=== PATIENT | male | born 1945 | race Caucasian/White ===

== ENCOUNTER 2017-07-21 12:24 | Inpatient (IN) | payer OTHER, MEDICAID, MEDICARE ==
[2017-07-21] MEDS: IPRATRPIUM/ALBUTEROL 0.5/2.5MG 3 ML NEBU. NEB ×3 (13:20→19:36)
[2017-07-21] MEDS: methylPREDNISolone SOD SUCC PF 125 MG/2 ML VIAL. IV (13:27)
[2017-07-21 13:31] LABS: BASO % 0 % (0-3); EOS # 0.3 x10^3/uL (0.0-0.7); EOS % 2 % (0-3); HEMATOCRIT 44.6 % (39.0-53.0); HEMOGLOBIN 14.4 g/dL (13.0-17.5); LYMPH # 0.9 x10^3/uL (1.0-4.8); LYMPH % 6 % (24-48); MEAN CORPUSCULAR HEMOGLOBIN 31 pg (25-35); MEAN CORPUSCULAR HGB CONC 32 g/dL (31-37); MEAN CORPUSCULAR VOLUME 94 fL (79-100); MONO # 1.5 x10^3/uL (0.0-1.1); MONO % 9 % (0-9); NEUT # 14.5 x10^3uL (1.8-7.7); NEUT % 84 % (31-73); PLATELET COUNT 198 x10^3/uL (140-400); RED BLOOD COUNT 4.73 x10^6/uL (4.30-5.70); RED CELL DISTRIBUTION WIDTH 15.8 % (11.5-14.5); WHITE BLOOD COUNT 17.2 x10^3/uL (4.0-11.0)
[2017-07-21 13:36] LABS: ADD MAN DIFF? YES
[2017-07-21 13:39] LABS: ANION GAP 10 (6-14); BLOOD UREA NITROGEN 21 mg/dL (8-26); BUN/CREATININE RATIO 16 (6-20); CARBON DIOXIDE 25 mmol/L (21-32); CHLORIDE 103 mmol/L (98-107); CREATININE 1.3 mg/dL (0.7-1.3); GFR 54.1; GLUCOSE 114 mg/dL (70-99); POTASSIUM 5.3 mmol/L (3.5-5.1); SODIUM 138 mmol/L (136-145)
[2017-07-21 13:45] LABS: ALBUMIN 3.3 g/dL (3.4-5.0); ALBUMIN/GLOBULIN RATIO 0.7 (1.0-1.7); ALK PHOS 101 U/L (46-116); ALT (SGPT) 47 U/L (16-63); AST (SGOT) 43 U/L (15-37); TOTAL BILIRUBIN 0.9 mg/dL (0.2-1.0); TOTAL PROTEIN 8.2 g/dL (6.4-8.2)
[2017-07-21 13:48] LABS: TROPONINI < 0.017 ng/mL (0.000-0.055)
[2017-07-21 13:53] LABS: CKMB INDEX 1.5 % (0-4); CKMB MASS 1.3 ng/mL (0.0-3.6); CREATINE KINASE 88 U/L (39-308)
[2017-07-21 14:08] LABS: % BANDS 16 % (0-9); % EOS 1 % (0-5); % LYMPHS 7 % (24-48); % MONOS 4 % (0-10); % SEGS 72 % (35-66); PLT ESTIMATE ADEQUATE (ADEQUATE)
[2017-07-21 14:11] LABS: INFLUENZA A PATIENT NEGATIVE (NEGATIVE); INFLUENZA B PATIENT NEGATIVE (NEGATIVE); OBC FLU VALID
[2017-07-21 14:23] LABS: BILIRUBIN,URINE NEGATIVE (NEG); CLARITY,URINE CLEAR; COLOR,URINE YELLOW; GLUCOSE,URINE NEGATIVE (NEG); NITRITE,URINE NEGATIVE (NEG); PH,URINE 6.5; PROTEIN,URINE NEGATIVE (NEG-TRACE)
[2017-07-21 14:31] LABS: BACTERIA,URINE FEW /HPF (0-FEW); RBC,URINE 0 /HPF (0-2); SQUAMOUS EPITHELIAL CELL,UR FEW /LPF; WBC,URINE OCC /HPF (0-4)
[2017-07-21] MEDS ORDERED: ONDANSETRON PF 4 MG/2 ML VIAL. IV (14:45)
[2017-07-21] MEDS ORDERED: fentaNYL PF VIAL 100 MCG/2 ML VIAL IV (14:45)
[2017-07-21] MEDS ORDERED: levOFLOXacin PER PHARMACY. MC (14:45)
[2017-07-21] MEDS ORDERED: ACETAMINOPHEN 325 MG TABLET. PO (14:45)
[2017-07-21] MEDS ORDERED: methylPREDNISolone SOD SUCC PF 40 MG/ML VIAL. IV ×2 (15:00→18:00)
[2017-07-21] MEDS: IV NORMAL SALINE 1000ML BAG 1,000 ML IV (15:12)
[2017-07-21 17:39] LABS: LACTIC ACID 1.9 mmol/L (0.4-2.0)
[2017-07-21 20:29] LABS: INR 3.3 (0.8-1.1); PROTHROMBIN TIME PATIENT 31.3 SEC (11.7-14.0)
[2017-07-21] MEDS: FUROSEMIDE 40 MG/4 ML VIAL. IVP (21:25)
[2017-07-21] MEDS: methylPREDNISolone SOD SUCC PF 40 MG/ML VIAL. IV (21:26)
[2017-07-21] MEDS: DOCUSATE SODIUM 100 MG CAPSULE. PO (21:27)
[2017-07-21] MEDS: LACTOBACILLUS RHAMNOSUS GG 1 CAPSULE. PO (21:27)
[2017-07-21] MEDS: ATORVASTATIN CALCIUM 10 MG TABLET. PO (21:27)
[2017-07-21] MEDS: CARVEDILOL 12.5 MG TABLET. PO (21:27)
[2017-07-22 05:12] LABS: ADD MAN DIFF? NO
[2017-07-22 05:28] LABS: BASO % 0 % (0-3); EOS % 0 % (0-3); HEMATOCRIT 42.5 % (39.0-53.0); HEMOGLOBIN 13.9 g/dL (13.0-17.5); LYMPH # 1.1 x10^3/uL (1.0-4.8); LYMPH % 7 % (24-48); MEAN CORPUSCULAR HEMOGLOBIN 31 pg (25-35); MEAN CORPUSCULAR HGB CONC 33 g/dL (31-37); MEAN CORPUSCULAR VOLUME 96 fL (79-100); MONO # 0.2 x10^3/uL (0.0-1.1); MONO % 1 % (0-9); NEUT # 15.3 x10^3uL (1.8-7.7); NEUT % 92 % (31-73); PLATELET COUNT 186 x10^3/uL (140-400); RED BLOOD COUNT 4.44 x10^6/uL (4.30-5.70); WHITE BLOOD COUNT 16.6 x10^3/uL (4.0-11.0)
[2017-07-22 05:33] LABS: INR 2.8 (0.8-1.1); PROTHROMBIN TIME PATIENT 27.8 SEC (11.7-14.0)
[2017-07-22 05:39] LABS: ANION GAP 12 (6-14); BLOOD UREA NITROGEN 30 mg/dL (8-26); CALCIUM 8.7 mg/dL (8.5-10.1); CARBON DIOXIDE 23 mmol/L (21-32); CHLORIDE 102 mmol/L (98-107); CREATININE 1.5 mg/dL (0.7-1.3); GFR 45.9; GLUCOSE 151 mg/dL (70-99); POTASSIUM 4.9 mmol/L (3.5-5.1); SODIUM 137 mmol/L (136-145)
[2017-07-22] MEDS: methylPREDNISolone SOD SUCC PF 40 MG/ML VIAL. IV ×2 (05:56→20:26)
[2017-07-22] MEDS: IPRATRPIUM/ALBUTEROL 0.5/2.5MG 3 ML NEBU. NEB ×3 (07:06→14:57)
[2017-07-22] MEDS: cefTRIAXone IV Push 1 GM VIAL. IVP (08:00)
[2017-07-22] MEDS: LACTOBACILLUS RHAMNOSUS GG 1 CAPSULE. PO ×2 (09:00→20:26)
[2017-07-22] MEDS: DOCUSATE SODIUM 100 MG CAPSULE. PO ×2 (11:56→20:26)
[2017-07-22] MEDS: ASPIRIN CHEWABLE 81 MG TABLET. PO (11:57)
[2017-07-22] MEDS: OMEGA-3 FATTY ACIDS/FISH OIL 1,000 MG CAPSULE. PO (11:57)
[2017-07-22] MEDS: ALLOPURINOL 100 MG TABLET. PO (11:57)
[2017-07-22] MEDS: POTASSIUM CHLORIDE 10 MEQ TABLET.ER. PO (12:00)
[2017-07-22] MEDS: CARVEDILOL 12.5 MG TABLET. PO ×2 (12:00→18:54)
[2017-07-22] MEDS: FENOFIBRATE,MICRONIZED 134 MG CAPSULE PO (12:00)
[2017-07-22] MEDS: LISINOPRIL 40 MG TABLET. PO (12:02)
[2017-07-22] MEDS: DIGOXIN 125 MCG TABLET. PO (12:03)
[2017-07-22] MEDS: FUROSEMIDE 20 MG/2 ML VIAL. IVP ×2 (12:04→15:54)
[2017-07-22 12:38] LABS: CHOLESTEROL 122 mg/dL (0-200); HDLC 42 mg/dL (40-60); LDLC 72 mg/dL (0-100); NON-HDL CHOLESTEROL 80 mg/dL (0-129); TRIGLYCERIDES 38 mg/dL (0-150); VLDLC 8 mg/dL (0-40)
[2017-07-22 12:39] LABS: CHOLESTEROL/HDL RATIO 2.9
[2017-07-22 17:00] LABS: DIG 0.5 ng/mL (0.9-2.0)
[2017-07-22] MEDS: WARFARIN 5 MG TABLET. PO (18:53)
[2017-07-22] MEDS: ATORVASTATIN CALCIUM 10 MG TABLET. PO (20:26)
[2017-07-23 05:44] LABS: ADD MAN DIFF? NO
[2017-07-23 06:12] LABS: BASO % 0 % (0-3); EOS % 0 % (0-3); HEMATOCRIT 42.2 % (39.0-53.0); HEMOGLOBIN 13.4 g/dL (13.0-17.5); LYMPH % 5 % (24-48); MEAN CORPUSCULAR HEMOGLOBIN 30 pg (25-35); MEAN CORPUSCULAR HGB CONC 32 g/dL (31-37); MEAN CORPUSCULAR VOLUME 96 fL (79-100); MONO # 0.7 x10^3/uL (0.0-1.1); MONO % 3 % (0-9); NEUT % 92 % (31-73); PLATELET COUNT 206 x10^3/uL (140-400); RED BLOOD COUNT 4.42 x10^6/uL (4.30-5.70); RED CELL DISTRIBUTION WIDTH 15.4 % (11.5-14.5); WHITE BLOOD COUNT 21.7 x10^3/uL (4.0-11.0)
[2017-07-23 06:27] LABS: ANION GAP 10 (6-14); BLOOD UREA NITROGEN 39 mg/dL (8-26); CALCIUM 8.5 mg/dL (8.5-10.1); CARBON DIOXIDE 23 mmol/L (21-32); CHLORIDE 101 mmol/L (98-107); CREATININE 1.5 mg/dL (0.7-1.3); GFR 45.9; GLUCOSE 142 mg/dL (70-99); POTASSIUM 4.9 mmol/L (3.5-5.1); SODIUM 134 mmol/L (136-145)
[2017-07-23 06:28] LABS: INR 2.4 (0.8-1.1); PROTHROMBIN TIME PATIENT 24.9 SEC (11.7-14.0)
[2017-07-23] MEDS: ASPIRIN CHEWABLE 81 MG TABLET. PO (09:01)
[2017-07-23] MEDS: ALLOPURINOL 100 MG TABLET. PO (09:01)
[2017-07-23] MEDS: OMEGA-3 FATTY ACIDS/FISH OIL 1,000 MG CAPSULE. PO (09:02)
[2017-07-23] MEDS: DOCUSATE SODIUM 100 MG CAPSULE. PO ×2 (09:02→23:28)
[2017-07-23] MEDS: POTASSIUM CHLORIDE 10 MEQ TABLET.ER. PO (09:02)
[2017-07-23] MEDS: DIGOXIN 125 MCG TABLET. PO (09:02)
[2017-07-23] MEDS: FENOFIBRATE,MICRONIZED 134 MG CAPSULE PO (09:03)
[2017-07-23] MEDS: LACTOBACILLUS RHAMNOSUS GG 1 CAPSULE. PO ×2 (09:03→22:13)
[2017-07-23] MEDS: FUROSEMIDE 20 MG/2 ML VIAL. IVP ×3 (09:04→14:00)
[2017-07-23] MEDS: methylPREDNISolone SOD SUCC PF 40 MG/ML VIAL. IV (09:04)
[2017-07-23] MEDS: cefTRIAXone IV Push 1 GM VIAL. IVP (09:05)
[2017-07-23] MEDS: CARVEDILOL 12.5 MG TABLET. PO ×2 (13:02→18:20)
[2017-07-23] MEDS: LISINOPRIL 40 MG TABLET. PO (13:04)
[2017-07-23] MEDS: WARFARIN 5 MG TABLET. PO (18:21)
[2017-07-23] MEDS: ATORVASTATIN CALCIUM 10 MG TABLET. PO (23:27)
[2017-07-24 05:39] LABS: ADD MAN DIFF? NO
[2017-07-24 05:47] LABS: BASO % 0 % (0-3); EOS % 0 % (0-3); HEMATOCRIT 41.1 % (39.0-53.0); HEMOGLOBIN 13.6 g/dL (13.0-17.5); LYMPH # 1.5 x10^3/uL (1.0-4.8); LYMPH % 9 % (24-48); MEAN CORPUSCULAR HEMOGLOBIN 32 pg (25-35); MEAN CORPUSCULAR HGB CONC 33 g/dL (31-37); MEAN CORPUSCULAR VOLUME 95 fL (79-100); MONO # 1.1 x10^3/uL (0.0-1.1); MONO % 7 % (0-9); NEUT # 14.3 x10^3uL (1.8-7.7); NEUT % 84 % (31-73); PLATELET COUNT 217 x10^3/uL (140-400); RED BLOOD COUNT 4.32 x10^6/uL (4.30-5.70); RED CELL DISTRIBUTION WIDTH 15.9 % (11.5-14.5)
[2017-07-24 05:59] LABS: INR 2.9 (0.8-1.1); PROTHROMBIN TIME PATIENT 28.8 SEC (11.7-14.0)
[2017-07-24 06:37] LABS: THYROID STIM HORMONE (TSH) 0.902 uIU/mL (0.358-3.74)
[2017-07-24 06:40] LABS: ANION GAP 8 (6-14); BLOOD UREA NITROGEN 45 mg/dL (8-26); CALCIUM 8.6 mg/dL (8.5-10.1); CARBON DIOXIDE 28 mmol/L (21-32); CHLORIDE 103 mmol/L (98-107); CREATININE 1.3 mg/dL (0.7-1.3); GFR 54.1; GLUCOSE 115 mg/dL (70-99); POTASSIUM 4.5 mmol/L (3.5-5.1); SODIUM 139 mmol/L (136-145)
[2017-07-24] MEDS: cefTRIAXone IV Push 1 GM VIAL. IVP (09:11)
[2017-07-24] MEDS: FENOFIBRATE,MICRONIZED 134 MG CAPSULE PO (09:11)
[2017-07-24] MEDS: ASPIRIN CHEWABLE 81 MG TABLET. PO (09:12)
[2017-07-24] MEDS: DOCUSATE SODIUM 100 MG CAPSULE. PO ×2 (09:12→21:18)
[2017-07-24] MEDS: CARVEDILOL 12.5 MG TABLET. PO ×2 (09:12→18:23)
[2017-07-24] MEDS: LISINOPRIL 40 MG TABLET. PO (09:13)
[2017-07-24] MEDS: LACTOBACILLUS RHAMNOSUS GG 1 CAPSULE. PO ×2 (09:13→21:16)
[2017-07-24] MEDS: OMEGA-3 FATTY ACIDS/FISH OIL 1,000 MG CAPSULE. PO (09:14)
[2017-07-24] MEDS: predniSONE 20 MG TABLET PO (09:14)
[2017-07-24] MEDS: ALLOPURINOL 100 MG TABLET. PO (09:14)
[2017-07-24] MEDS: POTASSIUM CHLORIDE 10 MEQ TABLET.ER. PO (09:14)
[2017-07-24] MEDS: DIGOXIN 125 MCG TABLET. PO (09:16)
[2017-07-24] MEDS: FUROSEMIDE 20 MG/2 ML VIAL. IVP (09:17)
[2017-07-24] MEDS: CEFPODOXIME PROXETIL 100 MG TABLET. PO ×2 (12:17→21:18)
[2017-07-24] MEDS: FUROSEMIDE 80 MG TABLET. PO (12:17)
[2017-07-24] MEDS: WARFARIN 5 MG TABLET. PO (18:23)
[2017-07-24] MEDS: ATORVASTATIN CALCIUM 10 MG TABLET. PO (21:16)
[2017-07-25 05:25] LABS: ADD MAN DIFF? NO
[2017-07-25 05:37] LABS: BASO % 0 % (0-3); EOS # 0.1 x10^3/uL (0.0-0.7); EOS % 1 % (0-3); HEMATOCRIT 43.7 % (39.0-53.0); HEMOGLOBIN 14.6 g/dL (13.0-17.5); LYMPH # 1.8 x10^3/uL (1.0-4.8); LYMPH % 15 % (24-48); MEAN CORPUSCULAR HEMOGLOBIN 32 pg (25-35); MEAN CORPUSCULAR HGB CONC 33 g/dL (31-37); MEAN CORPUSCULAR VOLUME 95 fL (79-100); MONO # 1.2 x10^3/uL (0.0-1.1); MONO % 10 % (0-9); NEUT # 8.9 x10^3uL (1.8-7.7); NEUT % 74 % (31-73); PLATELET COUNT 215 x10^3/uL (140-400); RED CELL DISTRIBUTION WIDTH 15.6 % (11.5-14.5)
[2017-07-25 05:44] LABS: INR 3.5 (0.8-1.1)
[2017-07-25] MEDS: predniSONE 20 MG TABLET PO (09:22)
[2017-07-25] MEDS: CARVEDILOL 12.5 MG TABLET. PO (09:23)
[2017-07-25] MEDS: DOCUSATE SODIUM 100 MG CAPSULE. PO (09:23)
[2017-07-25] MEDS: DIGOXIN 125 MCG TABLET. PO (09:23)
[2017-07-25] MEDS: ASPIRIN CHEWABLE 81 MG TABLET. PO (09:23)
[2017-07-25] MEDS: CEFPODOXIME PROXETIL 100 MG TABLET. PO (09:23)
[2017-07-25] MEDS: FENOFIBRATE,MICRONIZED 134 MG CAPSULE PO (09:23)
[2017-07-25] MEDS: ALLOPURINOL 100 MG TABLET. PO (09:23)
[2017-07-25] MEDS: FUROSEMIDE 80 MG TABLET. PO (09:24)
[2017-07-25] MEDS: LACTOBACILLUS RHAMNOSUS GG 1 CAPSULE. PO (09:24)
[2017-07-25] MEDS: LISINOPRIL 40 MG TABLET. PO (09:24)
[2017-07-25] MEDS: POTASSIUM CHLORIDE 10 MEQ TABLET.ER. PO (09:24)
[2017-07-25] MEDS: OMEGA-3 FATTY ACIDS/FISH OIL 1,000 MG CAPSULE. PO (09:26)
== END 2017-07-25 13:00 | disposition home health service (06) | DRG 177 ==
LOC: ER 12:24 → ED HOLD 14:41 → 5 SOUTH 17:09
DX: J15.6 Pneumonia due to other Gram-negative bacteria (principal); J96.21 Acute and chronic respiratory failure with hypoxia; N17.9 Acute kidney failure, unspecified; I50.43 Acute on chronic combined systolic (congestive) and diastolic (congestive) heart failure; I42.9 Cardiomyopathy, unspecified; J44.1 Chronic obstructive pulmonary disease with (acute) exacerbation; J44.0 Chronic obstructive pulmonary disease with (acute) lower respiratory infection; I11.0 Hypertensive heart disease with heart failure; I27.20 Pulmonary hypertension, unspecified; I48.2 Chronic atrial fibrillation; M19.90 Unspecified osteoarthritis, unspecified site; E11.9 Type 2 diabetes mellitus without complications; E78.5 Hyperlipidemia, unspecified; G47.33 Obstructive sleep apnea (adult) (pediatric); I25.10 Atherosclerotic heart disease of native coronary artery without angina pectoris; Z79.01 Long term (current) use of anticoagulants; Z83.3 Family history of diabetes mellitus; Z87.891 Personal history of nicotine dependence; Z95.1 Presence of aortocoronary bypass graft; Z95.810 Presence of automatic (implantable) cardiac defibrillator
CPT/HCPCS: 36415; 71045; 71046; 71250; 80048; 80053; 80061; 80162; 81001; 82553; 83036; 83605; 84443; 84484; 85007; 85025; 85610; 87040; 87070; 87205; 87804; 87804-59; 93005; 93306; 94618; 94640; 96374; 96375; 97110-GP; 97162-GP; 99285; 99285-25; J0696; J1940; J1956; J2920; J2930; J7030; J7512; J7620

== ENCOUNTER → 2017-08-11 | Outpatient (CLI) | payer OTHER | END | disposition home or self-care (01) | LOC: RAD 12:22 | DX: J18.9 Pneumonia, unspecified organism (principal); I51.7 Cardiomegaly | CPT/HCPCS: 71046 ==

== ENCOUNTER 2017-08-16 15:59 | Inpatient (IN) | payer OTHER ==
[2017-08-16] MEDS: IV NORMAL SALINE 1000ML BAG 1,000 ML IV ×10 (16:51→23:25)
[2017-08-16 17:00] LABS: ADD MAN DIFF? NO
[2017-08-16 17:03] LABS: BASO # 0.1 x10^3/uL (0.0-0.2); BASO % 1 % (0-3); EOS # 0.4 x10^3/uL (0.0-0.7); EOS % 5 % (0-3); HEMATOCRIT 35.9 % (39.0-53.0); LYMPH # 1.6 x10^3/uL (1.0-4.8); LYMPH % 20 % (24-48); MEAN CORPUSCULAR HEMOGLOBIN 32 pg (25-35); MEAN CORPUSCULAR HGB CONC 34 g/dL (31-37); MEAN CORPUSCULAR VOLUME 95 fL (79-100); MONO # 0.6 x10^3/uL (0.0-1.1); MONO % 8 % (0-9); NEUT # 5.2 x10^3uL (1.8-7.7); NEUT % 66 % (31-73); PLATELET COUNT 163 x10^3/uL (140-400); RED BLOOD COUNT 3.79 x10^6/uL (4.30-5.70); RED CELL DISTRIBUTION WIDTH 15.3 % (11.5-14.5); WHITE BLOOD COUNT 7.8 x10^3/uL (4.0-11.0)
[2017-08-16 17:12] LABS: FECAL OB PT NEGATIVE (NEG); NEG OBC FOB NEG; POS OBC FOB POS
[2017-08-16 17:18] LABS: ANION GAP 12 (6-14); BLOOD UREA NITROGEN 97 mg/dL (8-26); BUN/CREATININE RATIO 44 (6-20); CARBON DIOXIDE 20 mmol/L (21-32); CHLORIDE 104 mmol/L (98-107); CREATININE 2.2 mg/dL (0.7-1.3); GFR 29.5; GLUCOSE 127 mg/dL (70-99); POTASSIUM 4.5 mmol/L (3.5-5.1); SODIUM 136 mmol/L (136-145)
[2017-08-16 17:23] LABS: ALBUMIN/GLOBULIN RATIO 0.7 (1.0-1.7); ALK PHOS 67 U/L (46-116); ALT (SGPT) 33 U/L (16-63); AST (SGOT) 33 U/L (15-37); TOTAL BILIRUBIN 0.3 mg/dL (0.2-1.0); TOTAL PROTEIN 7.5 g/dL (6.4-8.2)
[2017-08-16 17:25] LABS: TROPONINI 0.021 ng/mL (0.000-0.055)
[2017-08-16 18:50] LABS: PROTHROMBIN TIME PATIENT 44.5 SEC (11.7-14.0)
[2017-08-16 18:54] LABS: INR 5.2 (0.8-1.1)
[2017-08-16 18:55] LABS: DIG 0.6 ng/mL (0.9-2.0)
[2017-08-16] MEDS ORDERED: ONDANSETRON PF 4 MG/2 ML VIAL. IV (19:00)
[2017-08-16 19:23] LABS: BILIRUBIN,URINE NEGATIVE (NEG); CLARITY,URINE CLEAR; COLOR,URINE YELLOW; GLUCOSE,URINE NEGATIVE (NEG); NITRITE,URINE NEGATIVE (NEG); PH,URINE 5.5; PROTEIN,URINE NEGATIVE (NEG-TRACE); UROBILINOGEN,URINE 0.2 mg/dL (0.2 mg/dL)
[2017-08-16 19:38] LABS: BACTERIA,URINE 0 /HPF (0-FEW); HYALINE CASTS, URINE MODERATE /HPF; RBC,URINE 0 /HPF (0-2); SQUAMOUS EPITHELIAL CELL,UR FEW /LPF; WBC,URINE OCC /HPF (0-4)
[2017-08-16 22:22] LABS: TROPONINI 0.021 ng/mL (0.000-0.055)
[2017-08-17] MEDS: IV NORMAL SALINE 1000ML BAG 1,000 ML IV ×15 (00:26→20:53)
[2017-08-17 05:14] LABS: ADD MAN DIFF? NO
[2017-08-17 05:22] LABS: BASO # 0.1 x10^3/uL (0.0-0.2); BASO % 1 % (0-3); EOS # 0.7 x10^3/uL (0.0-0.7); EOS % 8 % (0-3); HEMATOCRIT 28.4 % (39.0-53.0); HEMOGLOBIN 9.7 g/dL (13.0-17.5); LYMPH # 1.6 x10^3/uL (1.0-4.8); LYMPH % 19 % (24-48); MEAN CORPUSCULAR HEMOGLOBIN 32 pg (25-35); MEAN CORPUSCULAR HGB CONC 34 g/dL (31-37); MEAN CORPUSCULAR VOLUME 95 fL (79-100); MONO # 0.7 x10^3/uL (0.0-1.1); MONO % 8 % (0-9); NEUT # 5.4 x10^3uL (1.8-7.7); NEUT % 64 % (31-73); PLATELET COUNT 135 x10^3/uL (140-400); RED CELL DISTRIBUTION WIDTH 15.5 % (11.5-14.5); WHITE BLOOD COUNT 8.3 x10^3/uL (4.0-11.0)
[2017-08-17 05:49] LABS: ANION GAP 11 (6-14); BLOOD UREA NITROGEN 79 mg/dL (8-26); CALCIUM 8.3 mg/dL (8.5-10.1); CARBON DIOXIDE 19 mmol/L (21-32); CHLORIDE 109 mmol/L (98-107); CREATININE 1.5 mg/dL (0.7-1.3); GFR 45.9; GLUCOSE 89 mg/dL (70-99); POTASSIUM 3.9 mmol/L (3.5-5.1); SODIUM 139 mmol/L (136-145)
[2017-08-17 07:39] LABS: POC GLUCOSE 80 mg/dL (70-99)
[2017-08-17] MEDS: ASPIRIN CHEWABLE 81 MG TABLET. PO (10:36)
[2017-08-17] MEDS: DOCUSATE SODIUM 100 MG CAPSULE. PO (10:36)
[2017-08-17] MEDS: CARVEDILOL 12.5 MG TABLET. PO ×2 (10:37→16:50)
[2017-08-17] MEDS: ALLOPURINOL 100 MG TABLET. PO (10:37)
[2017-08-17] MEDS: LISINOPRIL 20 MG TABLET PO (10:37)
[2017-08-17 11:29] LABS: POC GLUCOSE 87 mg/dL (70-99)
[2017-08-17 16:18] LABS: POC GLUCOSE 101 mg/dL (70-99)
[2017-08-17 17:18] LABS: ADD MAN DIFF? NO
[2017-08-17 17:20] LABS: BASO % 1 % (0-3); EOS # 0.5 x10^3/uL (0.0-0.7); EOS % 9 % (0-3); HEMATOCRIT 28.2 % (39.0-53.0); HEMOGLOBIN 9.4 g/dL (13.0-17.5); LYMPH # 0.5 x10^3/uL (1.0-4.8); LYMPH % 10 % (24-48); MEAN CORPUSCULAR HEMOGLOBIN 32 pg (25-35); MEAN CORPUSCULAR HGB CONC 34 g/dL (31-37); MEAN CORPUSCULAR VOLUME 96 fL (79-100); MONO # 0.5 x10^3/uL (0.0-1.1); MONO % 10 % (0-9); NEUT # 3.7 x10^3uL (1.8-7.7); NEUT % 71 % (31-73); PLATELET COUNT 131 x10^3/uL (140-400); RED BLOOD COUNT 2.93 x10^6/uL (4.30-5.70); RED CELL DISTRIBUTION WIDTH 15.8 % (11.5-14.5); WHITE BLOOD COUNT 5.2 x10^3/uL (4.0-11.0)
[2017-08-17 20:32] LABS: POC GLUCOSE 117 mg/dL (70-99)
[2017-08-17] MEDS: ATORVASTATIN CALCIUM 10 MG TABLET. PO (20:53)
[2017-08-18 04:22] LABS: ADD MAN DIFF? NO
[2017-08-18 04:30] LABS: BASO % 1 % (0-3); EOS # 0.3 x10^3/uL (0.0-0.7); EOS % 5 % (0-3); HEMOGLOBIN 8.2 g/dL (13.0-17.5); LYMPH # 0.6 x10^3/uL (1.0-4.8); LYMPH % 10 % (24-48); MEAN CORPUSCULAR HEMOGLOBIN 32 pg (25-35); MEAN CORPUSCULAR HGB CONC 34 g/dL (31-37); MEAN CORPUSCULAR VOLUME 96 fL (79-100); MONO # 0.6 x10^3/uL (0.0-1.1); MONO % 11 % (0-9); NEUT # 4.1 x10^3uL (1.8-7.7); NEUT % 73 % (31-73); PLATELET COUNT 119 x10^3/uL (140-400); RED BLOOD COUNT 2.52 x10^6/uL (4.30-5.70); RED CELL DISTRIBUTION WIDTH 15.5 % (11.5-14.5); WHITE BLOOD COUNT 5.7 x10^3/uL (4.0-11.0)
[2017-08-18 04:56] LABS: ANION GAP 10 (6-14); BLOOD UREA NITROGEN 53 mg/dL (8-26); CALCIUM 8.3 mg/dL (8.5-10.1); CARBON DIOXIDE 18 mmol/L (21-32); CHLORIDE 111 mmol/L (98-107); CREATININE 1.4 mg/dL (0.7-1.3); GFR 49.7; GLUCOSE 97 mg/dL (70-99); MAGNESIUM 1.6 mg/dL (1.8-2.4); POTASSIUM 4.3 mmol/L (3.5-5.1); SODIUM 139 mmol/L (136-145)
[2017-08-18 05:00] LABS: INR 3.9 (0.8-1.1); PROTHROMBIN TIME PATIENT 36.2 SEC (11.7-14.0)
[2017-08-18] MEDS: IV NORMAL SALINE 1000ML BAG 1,000 ML IV ×2 (06:39→17:43)
[2017-08-18 08:01] LABS: POC GLUCOSE 101 mg/dL (70-99)
[2017-08-18] MEDS: DOCUSATE SODIUM 100 MG CAPSULE. PO (08:48)
[2017-08-18] MEDS: ALLOPURINOL 100 MG TABLET. PO (08:49)
[2017-08-18] MEDS: CARVEDILOL 12.5 MG TABLET. PO ×2 (08:49→17:42)
[2017-08-18] MEDS: ASPIRIN CHEWABLE 81 MG TABLET. PO (08:49)
[2017-08-18] MEDS: MAGNESIUM SULFATE 2GM 50 ML IV (09:15)
[2017-08-18] MEDS: FAMOTIDINE 20 MG TABLET. PO ×2 (09:15→21:09)
[2017-08-18 11:05] LABS: POC GLUCOSE 107 mg/dL (70-99)
[2017-08-18] MEDS: ACETAMINOPHEN 325 MG TABLET. PO (14:10)
[2017-08-18] MEDS: PIPERACILLIN/TAZOBACTAM 3.375 GM in IV NORMAL SALINE 50ML 50 ML IV ×2 (16:29→23:31)
[2017-08-18] MEDS: OSELTAMIVIR 75 MG CAPSULE PO ×2 (16:30→23:31)
[2017-08-18 16:48] LABS: INFLUENZA A PATIENT NEGATIVE (NEGATIVE)
[2017-08-18 16:50] LABS: INFLUENZA B PATIENT POSITIVE (NEGATIVE); OBC FLU VALID
[2017-08-18 17:04] LABS: POC GLUCOSE 110 mg/dL (70-99)
[2017-08-18] MEDS: VANCOMYCIN 1 GM in IV DEXTROSE 5% 250 ML IV (17:10)
[2017-08-18 20:20] LABS: POC GLUCOSE 116 mg/dL (70-99)
[2017-08-18] MEDS: ATORVASTATIN CALCIUM 10 MG TABLET. PO (21:09)
[2017-08-19 04:57] LABS: ADD MAN DIFF? NO
[2017-08-19] MEDS: PIPERACILLIN/TAZOBACTAM 3.375 GM in IV NORMAL SALINE 50ML 50 ML IV ×3 (05:00→18:12)
[2017-08-19] MEDS: IV NORMAL SALINE 1000ML BAG 1,000 ML IV ×2 (05:00→14:37)
[2017-08-19 05:05] LABS: BASO % 1 % (0-3); EOS # 0.2 x10^3/uL (0.0-0.7); EOS % 4 % (0-3); HEMATOCRIT 21.9 % (39.0-53.0); HEMOGLOBIN 7.4 g/dL (13.0-17.5); LYMPH % 18 % (24-48); MEAN CORPUSCULAR HEMOGLOBIN 32 pg (25-35); MEAN CORPUSCULAR HGB CONC 34 g/dL (31-37); MEAN CORPUSCULAR VOLUME 96 fL (79-100); MONO # 0.8 x10^3/uL (0.0-1.1); MONO % 14 % (0-9); NEUT # 3.6 x10^3uL (1.8-7.7); NEUT % 63 % (31-73); PLATELET COUNT 112 x10^3/uL (140-400); RED BLOOD COUNT 2.28 x10^6/uL (4.30-5.70); RED CELL DISTRIBUTION WIDTH 15.8 % (11.5-14.5); WHITE BLOOD COUNT 5.7 x10^3/uL (4.0-11.0)
[2017-08-19 05:36] LABS: INR 2.1 (0.8-1.1); PROTHROMBIN TIME PATIENT 22.3 SEC (11.7-14.0)
[2017-08-19 05:43] LABS: ANION GAP 10 (6-14); BLOOD UREA NITROGEN 42 mg/dL (8-26); CALCIUM 7.8 mg/dL (8.5-10.1); CARBON DIOXIDE 18 mmol/L (21-32); CHLORIDE 112 mmol/L (98-107); CREATININE 1.5 mg/dL (0.7-1.3); GFR 45.9; GLUCOSE 108 mg/dL (70-99); POTASSIUM 4.2 mmol/L (3.5-5.1); SODIUM 140 mmol/L (136-145)
[2017-08-19 07:50] LABS: BILIRUBIN,URINE NEGATIVE (NEG); CLARITY,URINE CLEAR; COLOR,URINE YELLOW; GLUCOSE,URINE NEGATIVE (NEG); NITRITE,URINE NEGATIVE (NEG); PH,URINE 5.5; PROTEIN,URINE NEGATIVE (NEG-TRACE); UROBILINOGEN,URINE 0.2 mg/dL (0.2 mg/dL)
[2017-08-19 07:53] LABS: BACTERIA,URINE 0 /HPF (0-FEW); RBC,URINE 0 /HPF (0-2); SQUAMOUS EPITHELIAL CELL,UR MOD /LPF; WBC,URINE 0 /HPF (0-4)
[2017-08-19 08:40] LABS: POC GLUCOSE 118 mg/dL (70-99)
[2017-08-19] MEDS: ACETAMINOPHEN 325 MG TABLET. PO ×2 (09:05→23:24)
[2017-08-19] MEDS: ALLOPURINOL 100 MG TABLET. PO (09:05)
[2017-08-19] MEDS: ASPIRIN CHEWABLE 81 MG TABLET. PO (09:05)
[2017-08-19] MEDS: OSELTAMIVIR 75 MG CAPSULE PO ×2 (09:05→21:06)
[2017-08-19] MEDS: FAMOTIDINE 20 MG TABLET. PO ×2 (09:05→21:06)
[2017-08-19] MEDS: DOCUSATE SODIUM 100 MG CAPSULE. PO (09:05)
[2017-08-19] MEDS: CARVEDILOL 12.5 MG TABLET. PO ×2 (09:09→17:12)
[2017-08-19 12:02] LABS: POC GLUCOSE 116 mg/dL (70-99)
[2017-08-19] MEDS: WARFARIN 4 MG TABLET. PO (16:21)
[2017-08-19] MEDS: FUROSEMIDE 40 MG/4 ML VIAL. IVP (17:11)
[2017-08-19] MEDS: ATORVASTATIN CALCIUM 10 MG TABLET. PO (21:06)
[2017-08-19] MEDS: LACTOBACILLUS RHAMNOSUS GG 1 CAPSULE. PO (21:06)
[2017-08-20] MEDS: PIPERACILLIN/TAZOBACTAM 3.375 GM in IV NORMAL SALINE 50ML 50 ML IV ×4 (00:25→18:11)
[2017-08-20 03:33] LABS: ADD MAN DIFF? NO
[2017-08-20 03:36] LABS: BASO # 0.1 x10^3/uL (0.0-0.2); BASO % 1 % (0-3); EOS # 0.5 x10^3/uL (0.0-0.7); EOS % 8 % (0-3); HEMATOCRIT 21.2 % (39.0-53.0); HEMOGLOBIN 7.2 g/dL (13.0-17.5); LYMPH # 1.1 x10^3/uL (1.0-4.8); LYMPH % 19 % (24-48); MEAN CORPUSCULAR HEMOGLOBIN 33 pg (25-35); MEAN CORPUSCULAR HGB CONC 34 g/dL (31-37); MEAN CORPUSCULAR VOLUME 96 fL (79-100); MONO # 0.7 x10^3/uL (0.0-1.1); MONO % 13 % (0-9); NEUT # 3.5 x10^3uL (1.8-7.7); NEUT % 60 % (31-73); PLATELET COUNT 127 x10^3/uL (140-400); RED BLOOD COUNT 2.22 x10^6/uL (4.30-5.70); RED CELL DISTRIBUTION WIDTH 15.9 % (11.5-14.5); WHITE BLOOD COUNT 5.9 x10^3/uL (4.0-11.0)
[2017-08-20 03:43] LABS: INR 1.7 (0.8-1.1); PROTHROMBIN TIME PATIENT 18.9 SEC (11.7-14.0)
[2017-08-20 03:51] LABS: MAGNESIUM 1.9 mg/dL (1.8-2.4)
[2017-08-20 06:32] LABS: POC GLUCOSE 122 mg/dL (70-99)
[2017-08-20 07:49] LABS: POC GLUCOSE 105 mg/dL (70-99)
[2017-08-20] MEDS: CARVEDILOL 12.5 MG TABLET. PO ×2 (08:00→18:13)
[2017-08-20 10:12] LABS: POC GLUCOSE 108 mg/dL (70-99)
[2017-08-20] MEDS ORDERED: ALBUTEROL SULFATE 2.5 MG/3 ML NEBU. NEB (10:15)
[2017-08-20] MEDS: IPRATRPIUM/ALBUTEROL 0.5/2.5MG 3 ML NEBU. NEB ×4 (10:27→20:35)
[2017-08-20] MEDS: LACTOBACILLUS RHAMNOSUS GG 1 CAPSULE. PO ×2 (10:43→21:05)
[2017-08-20] MEDS: ALLOPURINOL 100 MG TABLET. PO (10:44)
[2017-08-20] MEDS: DOCUSATE SODIUM 100 MG CAPSULE. PO (10:44)
[2017-08-20] MEDS: OSELTAMIVIR 75 MG CAPSULE PO ×2 (10:44→21:05)
[2017-08-20] MEDS: ASPIRIN CHEWABLE 81 MG TABLET. PO (10:44)
[2017-08-20] MEDS: FAMOTIDINE 20 MG TABLET. PO ×2 (10:44→21:05)
[2017-08-20] MEDS: methylPREDNISolone SOD SUCC PF 125 MG/2 ML VIAL. IV (10:49)
[2017-08-20 11:02] LABS: POC GLUCOSE 131 mg/dL (70-99)
[2017-08-20 12:29] LABS: % SAT IRON 6 % (15-34); IRON,SERUM 12 ug/dL (65-175)
[2017-08-20 12:41] LABS: VITAMIN-B12 373 pg/mL (247-911)
[2017-08-20 12:42] LABS: LACTATE DEHYDROGENASE 259 U/L (85-227)
[2017-08-20 12:42] LABS: FERRITIN 232 ng/mL (26-388); FOLATE 7.73 ng/ml (3.2-20.0)
[2017-08-20 14:16] LABS: RETIC COUNT 1.6 % (0.5-2.5)
[2017-08-20] MEDS: LINEZOLID 600 MG TABLET PO ×2 (16:13→21:05)
[2017-08-20] MEDS: methylPREDNISolone SOD SUCC PF 40 MG/ML VIAL. IV ×2 (16:14→21:07)
[2017-08-20 16:37] LABS: POC GLUCOSE 229 mg/dL (70-99)
[2017-08-20] MEDS: ATORVASTATIN CALCIUM 10 MG TABLET. PO (21:06)
[2017-08-21] MEDS: PIPERACILLIN/TAZOBACTAM 3.375 GM in IV NORMAL SALINE 50ML 50 ML IV ×2 (00:58→06:31)
[2017-08-21 06:10] LABS: ADD MAN DIFF? NO
[2017-08-21 06:24] LABS: BASO % 0 % (0-3); EOS % 0 % (0-3); LYMPH # 0.7 x10^3/uL (1.0-4.8); LYMPH % 19 % (24-48); MEAN CORPUSCULAR HEMOGLOBIN 32 pg (25-35); MEAN CORPUSCULAR HGB CONC 34 g/dL (31-37); MEAN CORPUSCULAR VOLUME 96 fL (79-100); MONO # 0.3 x10^3/uL (0.0-1.1); MONO % 8 % (0-9); NEUT # 2.7 x10^3uL (1.8-7.7); NEUT % 73 % (31-73); PLATELET COUNT 148 x10^3/uL (140-400); RED BLOOD COUNT 2.06 x10^6/uL (4.30-5.70); RED CELL DISTRIBUTION WIDTH 15.9 % (11.5-14.5); WHITE BLOOD COUNT 3.8 x10^3/uL (4.0-11.0)
[2017-08-21 06:30] LABS: HEMATOCRIT 19.7 % (39.0-53.0); HEMOGLOBIN 6.6 g/dL (13.0-17.5)
[2017-08-21] MEDS: methylPREDNISolone SOD SUCC PF 40 MG/ML VIAL. IV ×3 (06:31→20:35)
[2017-08-21 06:33] LABS: INR 1.5 (0.8-1.1)
[2017-08-21 07:40] LABS: POC GLUCOSE 150 mg/dL (70-99)
[2017-08-21] MEDS: IPRATRPIUM/ALBUTEROL 0.5/2.5MG 3 ML NEBU. NEB ×4 (07:44→19:47)
[2017-08-21] MEDS: CARVEDILOL 12.5 MG TABLET. PO ×2 (08:00→17:19)
[2017-08-21] MEDS: ALLOPURINOL 100 MG TABLET. PO (09:24)
[2017-08-21] MEDS: LACTOBACILLUS RHAMNOSUS GG 1 CAPSULE. PO ×2 (09:24→20:35)
[2017-08-21] MEDS: ASPIRIN CHEWABLE 81 MG TABLET. PO (09:24)
[2017-08-21] MEDS: OSELTAMIVIR 75 MG CAPSULE PO ×2 (09:24→20:35)
[2017-08-21] MEDS: FAMOTIDINE 20 MG TABLET. PO (09:24)
[2017-08-21] MEDS: LINEZOLID 600 MG TABLET PO ×2 (09:24→20:35)
[2017-08-21] MEDS: DOCUSATE SODIUM 100 MG CAPSULE. PO (09:24)
[2017-08-21 11:38] LABS: POC GLUCOSE 167 mg/dL (70-99)
[2017-08-21] MEDS: PANTOPRAZOLE IV PUSH 40 MG VIAL. IVP (13:16)
[2017-08-21 13:34] LABS: IMMEDIATE SPIN CROSSMATCH 1 2
[2017-08-21] MEDS: FUROSEMIDE 20 MG/2 ML VIAL. IVP (13:55)
[2017-08-21 16:36] LABS: POC GLUCOSE 165 mg/dL (70-99)
[2017-08-21] MEDS: ATORVASTATIN CALCIUM 10 MG TABLET. PO (20:35)
[2017-08-21] MEDS: AMOXICILLIN/K CLAV 875/125MG TABLET. PO (20:36)
[2017-08-21 20:47] LABS: POC GLUCOSE 172 mg/dL (70-99)
[2017-08-22 04:29] LABS: BASO % 0 % (0-3); EOS % 0 % (0-3); HEMATOCRIT 25.7 % (39.0-53.0); HEMOGLOBIN 8.8 g/dL (13.0-17.5); LYMPH # 0.9 x10^3/uL (1.0-4.8); LYMPH % 9 % (24-48); MEAN CORPUSCULAR HEMOGLOBIN 32 pg (25-35); MEAN CORPUSCULAR HGB CONC 34 g/dL (31-37); MEAN CORPUSCULAR VOLUME 94 fL (79-100); MONO # 0.5 x10^3/uL (0.0-1.1); MONO % 5 % (0-9); NEUT # 8.6 x10^3uL (1.8-7.7); NEUT % 86 % (31-73); PLATELET COUNT 182 x10^3/uL (140-400); RED BLOOD COUNT 2.73 x10^6/uL (4.30-5.70); RED CELL DISTRIBUTION WIDTH 15.8 % (11.5-14.5)
[2017-08-22 04:36] LABS: INR 1.5 (0.8-1.1); PROTHROMBIN TIME PATIENT 16.8 SEC (11.7-14.0)
[2017-08-22 04:41] LABS: ADD MAN DIFF? YES; ANION GAP 10 (6-14); BLOOD UREA NITROGEN 38 mg/dL (8-26); CALCIUM 8.2 mg/dL (8.5-10.1); CARBON DIOXIDE 21 mmol/L (21-32); CHLORIDE 109 mmol/L (98-107); CREATININE 1.6 mg/dL (0.7-1.3); GFR 42.6; GLUCOSE 183 mg/dL (70-99); MAGNESIUM 2.1 mg/dL (1.8-2.4); POTASSIUM 4.3 mmol/L (3.5-5.1); SODIUM 140 mmol/L (136-145)
[2017-08-22] MEDS ORDERED: PANTOPRAZOLE IV PUSH 40 MG VIAL. IVP (07:30)
[2017-08-22] MEDS: methylPREDNISolone SOD SUCC PF 40 MG/ML VIAL. IV ×3 (07:31→20:55)
[2017-08-22] MEDS: IPRATRPIUM/ALBUTEROL 0.5/2.5MG 3 ML NEBU. NEB ×4 (07:46→19:54)
[2017-08-22 08:05] LABS: POC GLUCOSE 132 mg/dL (70-99)
[2017-08-22 09:58] LABS: PATHOLOGY REVIEW SEE SEPARATE REPORT
[2017-08-22] MEDS: PANTOPRAZOLE 40 MG TABLET.DR. PO (11:27)
[2017-08-22] MEDS: ALLOPURINOL 100 MG TABLET. PO (11:27)
[2017-08-22] MEDS: CARVEDILOL 12.5 MG TABLET. PO ×2 (11:27→17:46)
[2017-08-22] MEDS: AMOXICILLIN/K CLAV 875/125MG TABLET. PO ×2 (11:27→20:54)
[2017-08-22] MEDS: DOCUSATE SODIUM 100 MG CAPSULE. PO (11:28)
[2017-08-22] MEDS: OSELTAMIVIR 75 MG CAPSULE PO ×2 (11:28→20:54)
[2017-08-22] MEDS: LACTOBACILLUS RHAMNOSUS GG 1 CAPSULE. PO ×2 (11:28→20:54)
[2017-08-22] MEDS: LINEZOLID 600 MG TABLET PO ×2 (11:30→20:54)
[2017-08-22 11:39] LABS: POC GLUCOSE 140 mg/dL (70-99)
[2017-08-22] MEDS: FUROSEMIDE 40 MG/4 ML VIAL. IVP (13:30)
[2017-08-22 16:54] LABS: POC GLUCOSE 146 mg/dL (70-99)
[2017-08-22 20:49] LABS: POC GLUCOSE 164 mg/dL (70-99)
[2017-08-22] MEDS: ATORVASTATIN CALCIUM 10 MG TABLET. PO (20:54)
[2017-08-22 22:19] LABS: SPECIMEN SOURCE Urine (.); STREP PNEUMO ANTIGEN Negative (Negative)
[2017-08-23] MEDS: methylPREDNISolone SOD SUCC PF 40 MG/ML VIAL. IV (06:01)
[2017-08-23] MEDS: IPRATRPIUM/ALBUTEROL 0.5/2.5MG 3 ML NEBU. NEB ×4 (07:15→19:14)
[2017-08-23 07:59] LABS: POC GLUCOSE 139 mg/dL (70-99)
[2017-08-23 08:01] LABS: ADD MAN DIFF? NO
[2017-08-23 08:10] LABS: BASO % 0 % (0-3); EOS % 0 % (0-3); HEMATOCRIT 26.8 % (39.0-53.0); HEMOGLOBIN 8.8 g/dL (13.0-17.5); LYMPH % 10 % (24-48); MEAN CORPUSCULAR HEMOGLOBIN 31 pg (25-35); MEAN CORPUSCULAR HGB CONC 33 g/dL (31-37); MEAN CORPUSCULAR VOLUME 95 fL (79-100); MONO # 0.7 x10^3/uL (0.0-1.1); MONO % 7 % (0-9); NEUT # 8.5 x10^3uL (1.8-7.7); NEUT % 83 % (31-73); PLATELET COUNT 204 x10^3/uL (140-400); RED BLOOD COUNT 2.82 x10^6/uL (4.30-5.70); RED CELL DISTRIBUTION WIDTH 15.8 % (11.5-14.5); WHITE BLOOD COUNT 10.2 x10^3/uL (4.0-11.0)
[2017-08-23] MEDS: AMOXICILLIN/K CLAV 875/125MG TABLET. PO ×2 (08:25→20:58)
[2017-08-23] MEDS: LACTOBACILLUS RHAMNOSUS GG 1 CAPSULE. PO ×2 (08:25→20:58)
[2017-08-23] MEDS: PANTOPRAZOLE 40 MG TABLET.DR. PO (08:25)
[2017-08-23 08:26] LABS: INR 1.3 (0.8-1.1); PROTHROMBIN TIME PATIENT 15.3 SEC (11.7-14.0)
[2017-08-23] MEDS: DOCUSATE SODIUM 100 MG CAPSULE. PO (08:26)
[2017-08-23] MEDS: ALLOPURINOL 100 MG TABLET. PO (08:26)
[2017-08-23] MEDS: OSELTAMIVIR 75 MG CAPSULE PO (08:26)
[2017-08-23] MEDS: LINEZOLID 600 MG TABLET PO ×2 (08:26→20:58)
[2017-08-23] MEDS: CARVEDILOL 12.5 MG TABLET. PO ×2 (08:26→17:04)
[2017-08-23] MEDS: FUROSEMIDE 40 MG/4 ML VIAL. IVP (08:27)
[2017-08-23 11:38] LABS: POC GLUCOSE 150 mg/dL (70-99)
[2017-08-23 16:28] LABS: POC GLUCOSE 146 mg/dL (70-99)
[2017-08-23] MEDS: ATORVASTATIN CALCIUM 10 MG TABLET. PO (20:59)
[2017-08-24 06:27] LABS: ANION GAP 5 (6-14); BLOOD UREA NITROGEN 33 mg/dL (8-26); CARBON DIOXIDE 28 mmol/L (21-32); CHLORIDE 108 mmol/L (98-107); CREATININE 1.2 mg/dL (0.7-1.3); GFR 59.3; GLUCOSE 91 mg/dL (70-99); POTASSIUM 3.9 mmol/L (3.5-5.1); SODIUM 141 mmol/L (136-145)
[2017-08-24 06:36] LABS: INR 1.3 (0.8-1.1); PROTHROMBIN TIME PATIENT 15.7 SEC (11.7-14.0)
[2017-08-24] MEDS: IPRATRPIUM/ALBUTEROL 0.5/2.5MG 3 ML NEBU. NEB ×4 (07:13→20:30)
[2017-08-24 07:38] LABS: POC GLUCOSE 84 mg/dL (70-99)
[2017-08-24 07:38] LABS: POC GLUCOSE 114 mg/dL (70-99)
[2017-08-24] MEDS: ALLOPURINOL 100 MG TABLET. PO (08:29)
[2017-08-24] MEDS: AMOXICILLIN/K CLAV 875/125MG TABLET. PO ×2 (08:29→20:23)
[2017-08-24] MEDS: DOCUSATE SODIUM 100 MG CAPSULE. PO (08:29)
[2017-08-24] MEDS: LACTOBACILLUS RHAMNOSUS GG 1 CAPSULE. PO ×2 (08:29→20:23)
[2017-08-24] MEDS: CARVEDILOL 12.5 MG TABLET. PO ×2 (08:29→16:59)
[2017-08-24] MEDS: FUROSEMIDE 40 MG/4 ML VIAL. IVP (08:29)
[2017-08-24] MEDS: methylPREDNISolone SOD SUCC PF 40 MG/ML VIAL. IV (08:29)
[2017-08-24] MEDS: PANTOPRAZOLE 40 MG TABLET.DR. PO (08:29)
[2017-08-24] MEDS: LINEZOLID 600 MG TABLET PO ×2 (08:32→20:23)
[2017-08-24 11:25] LABS: POC GLUCOSE 128 mg/dL (70-99)
[2017-08-24] MEDS: FUROSEMIDE 80 MG TABLET. PO (11:43)
[2017-08-24 16:55] LABS: POC GLUCOSE 153 mg/dL (70-99)
[2017-08-24] MEDS: ATORVASTATIN CALCIUM 10 MG TABLET. PO (20:23)
[2017-08-24 20:25] LABS: POC GLUCOSE 170 mg/dL (70-99)
[2017-08-25 07:24] LABS: POC GLUCOSE 80 mg/dL (70-99)
[2017-08-25] MEDS: IPRATRPIUM/ALBUTEROL 0.5/2.5MG 3 ML NEBU. NEB ×4 (07:29→20:37)
[2017-08-25] MEDS: FUROSEMIDE 80 MG TABLET. PO (08:42)
[2017-08-25] MEDS: LINEZOLID 600 MG TABLET PO ×2 (08:42→21:00)
[2017-08-25] MEDS: DOCUSATE SODIUM 100 MG CAPSULE. PO (08:42)
[2017-08-25] MEDS: ALLOPURINOL 100 MG TABLET. PO (08:42)
[2017-08-25] MEDS: LACTOBACILLUS RHAMNOSUS GG 1 CAPSULE. PO ×2 (08:43→21:00)
[2017-08-25] MEDS: CARVEDILOL 12.5 MG TABLET. PO ×2 (08:43→16:53)
[2017-08-25] MEDS: methylPREDNISolone SOD SUCC PF 40 MG/ML VIAL. IV (08:43)
[2017-08-25] MEDS: PANTOPRAZOLE 40 MG TABLET.DR. PO (08:43)
[2017-08-25] MEDS: AMOXICILLIN/K CLAV 875/125MG TABLET. PO ×2 (08:43→21:00)
[2017-08-25 10:57] LABS: POC GLUCOSE 111 mg/dL (70-99)
[2017-08-25] MEDS: IV RINGERS,LACTATED 1000ML 1,000 ML IV ×2 (13:50→21:50)
[2017-08-25] MEDS ORDERED: MIDAZOLAM HCL/PF 2 MG/2 ML VIAL. IV (14:00)
[2017-08-25] MEDS ORDERED: LIDOCAINE 1% PF 2 ML VIAL. ID (14:00)
[2017-08-25] MEDS ORDERED: fentaNYL PF VIAL 100 MCG/2 ML VIAL IV ×2 (14:00)
[2017-08-25] MEDS ORDERED: PROPOFOL 20 ML IV (14:44)
[2017-08-25] MEDS: POTASSIUM CHLORIDE 10 MEQ TABLET.ER. PO (16:13)
[2017-08-25] MEDS: FENOFIBRATE,MICRONIZED 134 MG CAPSULE PO (16:13)
[2017-08-25] MEDS: WARFARIN 6 MG TABLET. PO (16:13)
[2017-08-25] MEDS: LISINOPRIL 10 MG TABLET PO (16:14)
[2017-08-25 16:26] LABS: POC GLUCOSE 144 mg/dL (70-99)
[2017-08-25 20:32] LABS: POC GLUCOSE 180 mg/dL (70-99)
[2017-08-25] MEDS: OMEGA-3 FATTY ACIDS/FISH OIL 1,000 MG CAPSULE. PO (21:00)
[2017-08-25] MEDS: ATORVASTATIN CALCIUM 10 MG TABLET. PO (21:00)
[2017-08-26 06:33] LABS: INR 1.3 (0.8-1.1); PROTHROMBIN TIME PATIENT 15.7 SEC (11.7-14.0)
[2017-08-26] MEDS: IPRATRPIUM/ALBUTEROL 0.5/2.5MG 3 ML NEBU. NEB (07:22)
[2017-08-26 07:33] LABS: ADD MAN DIFF? NO
[2017-08-26 07:37] LABS: BASO % 0 % (0-3); EOS # 0.1 x10^3/uL (0.0-0.7); EOS % 1 % (0-3); HEMATOCRIT 28.7 % (39.0-53.0); HEMOGLOBIN 9.7 g/dL (13.0-17.5); LYMPH # 1.7 x10^3/uL (1.0-4.8); LYMPH % 19 % (24-48); MEAN CORPUSCULAR HEMOGLOBIN 32 pg (25-35); MEAN CORPUSCULAR HGB CONC 34 g/dL (31-37); MEAN CORPUSCULAR VOLUME 95 fL (79-100); MONO # 0.8 x10^3/uL (0.0-1.1); MONO % 9 % (0-9); NEUT # 6.4 x10^3uL (1.8-7.7); NEUT % 72 % (31-73); PLATELET COUNT 230 x10^3/uL (140-400); RED BLOOD COUNT 3.02 x10^6/uL (4.30-5.70); RED CELL DISTRIBUTION WIDTH 15.7 % (11.5-14.5)
[2017-08-26 07:50] LABS: POC GLUCOSE 88 mg/dL (70-99)
[2017-08-26] MEDS: DOCUSATE SODIUM 100 MG CAPSULE. PO (09:07)
[2017-08-26] MEDS: FENOFIBRATE,MICRONIZED 134 MG CAPSULE PO (09:07)
[2017-08-26] MEDS: AMOXICILLIN/K CLAV 875/125MG TABLET. PO (09:07)
[2017-08-26] MEDS: ALLOPURINOL 100 MG TABLET. PO (09:07)
[2017-08-26] MEDS: LACTOBACILLUS RHAMNOSUS GG 1 CAPSULE. PO (09:07)
[2017-08-26] MEDS: CARVEDILOL 12.5 MG TABLET. PO (09:08)
[2017-08-26] MEDS: LINEZOLID 600 MG TABLET PO (09:08)
[2017-08-26] MEDS: LISINOPRIL 10 MG TABLET PO (09:08)
[2017-08-26] MEDS: POTASSIUM CHLORIDE 10 MEQ TABLET.ER. PO (09:08)
[2017-08-26] MEDS: FUROSEMIDE 80 MG TABLET. PO (09:08)
[2017-08-26] MEDS: PANTOPRAZOLE 40 MG TABLET.DR. PO (09:09)
== END 2017-08-26 11:29 | disposition home or self-care (01) | DRG 177 ==
LOC: ER 15:59 → 5 SOUTH 18:45
PROC: 0DJ08ZZ Inspection of Upper Intestinal Tract, Via Natural or Artificial Opening Endoscopic (ICD-10-PCS; 2017-08-25 14:30)
PROC: 30233N1 Transfusion of Nonautologous Red Blood Cells into Peripheral Vein, Percutaneous Approach (ICD-10-PCS; principal; 2017-08-25 14:53)
DX: J15.6 Pneumonia due to other Gram-negative bacteria (principal); N17.0 Acute kidney failure with tubular necrosis; J96.01 Acute respiratory failure with hypoxia; D68.9 Coagulation defect, unspecified; E11.22 Type 2 diabetes mellitus with diabetic chronic kidney disease; D69.6 Thrombocytopenia, unspecified; E83.42 Hypomagnesemia; I13.0 Hypertensive heart and chronic kidney disease with heart failure and stage 1 through stage 4 chronic kidney disease, or unspecified chronic kidney disease; I50.42 Chronic combined systolic (congestive) and diastolic (congestive) heart failure; I42.9 Cardiomyopathy, unspecified; J44.0 Chronic obstructive pulmonary disease with (acute) lower respiratory infection; J13 Pneumonia due to Streptococcus pneumoniae; J10.08 Influenza due to other identified influenza virus with other specified pneumonia; I27.20 Pulmonary hypertension, unspecified; N18.2 Chronic kidney disease, stage 2 (mild); I95.1 Orthostatic hypotension; D64.9 Anemia, unspecified; E78.00 Pure hypercholesterolemia, unspecified; E78.5 Hyperlipidemia, unspecified; G47.33 Obstructive sleep apnea (adult) (pediatric); I25.10 Atherosclerotic heart disease of native coronary artery without angina pectoris; I48.2 Chronic atrial fibrillation; M19.90 Unspecified osteoarthritis, unspecified site; R07.89 Other chest pain; K21.9 Gastro-esophageal reflux disease without esophagitis; K29.60 Other gastritis without bleeding; Z79.01 Long term (current) use of anticoagulants; Z82.5 Family history of asthma and other chronic lower respiratory diseases; Z83.3 Family history of diabetes mellitus; Z87.01 Personal history of pneumonia (recurrent); Z87.891 Personal history of nicotine dependence; Z95.1 Presence of aortocoronary bypass graft; Z95.810 Presence of automatic (implantable) cardiac defibrillator
CPT/HCPCS: 36415; 71045; 71046; 71250; 74176; 80048; 80053; 80162; 81001; 82274; 82607; 82728; 82746; 82962; 83540; 83550; 83615; 83735; 84443; 84484; 85025; 85045; 85610; 86850; 86900; 86901; 86920; 87040; 87449; 87804; 87804-59; 93005; 94640; 94760; 96360; 97110-GP; 97116-GP; 97162-GP; 97166-GO; 97530-GP; 97535-GO; 99285; 99285-25; C9113; J1940; J2543; J2704; J2920; J2930; J3370; J3475; J7030; J7120; J7620; P9016

== ENCOUNTER → 2017-10-03 | Outpatient (CLI) | payer OTHER | END | disposition home or self-care (01) | LOC: RAD 10:22 | DX: J18.9 Pneumonia, unspecified organism (principal); R91.8 Other nonspecific abnormal finding of lung field | CPT/HCPCS: 71046 ==

== ENCOUNTER 2017-11-09 08:03 | Inpatient (IN) | payer OTHER ==
[2017-11-09] MEDS ORDERED: NITROGLYCERIN PREMIX 250 ML IV (08:15)
[2017-11-09 08:33] LABS: BASO # 0.1 x10^3/uL (0.0-0.2); BASO % 0 % (0-3); EOS # 0.2 x10^3/uL (0.0-0.7); EOS % 1 % (0-3); HEMATOCRIT 37.9 % (39.0-53.0); HEMOGLOBIN 11.9 g/dL (13.0-17.5); LYMPH % 5 % (24-48); MEAN CORPUSCULAR HEMOGLOBIN 27 pg (25-35); MEAN CORPUSCULAR HGB CONC 32 g/dL (31-37); MEAN CORPUSCULAR VOLUME 85 fL (79-100); MONO % 5 % (0-9); NEUT # 18.9 x10^3uL (1.8-7.7); NEUT % 89 % (31-73); PLATELET COUNT 341 x10^3/uL (140-400); RED BLOOD COUNT 4.45 x10^6/uL (4.30-5.70); RED CELL DISTRIBUTION WIDTH 18.3 % (11.5-14.5); WHITE BLOOD COUNT 21.2 x10^3/uL (4.0-11.0)
[2017-11-09 08:34] LABS: ADD MAN DIFF? YES
[2017-11-09] MEDS ORDERED: PIPERACILLIN/TAZOBACTAM 4.5 GM in IV NORMAL SALINE 100ML 100 ML IV (08:45)
[2017-11-09 09:01] LABS: BASE EXCESS ABG -6 mmol/L (-3-3); HCO3 ABG 19 mmol/L (21-28); PCO2 ABG 40 mmHg (35-46); PH ABG 7.31 (7.35-7.45); PO2 ABG 279 mmHg (65-108); SAT O2 ABG 99 % (92-99)
[2017-11-09 09:03] LABS: FIO2 ABG 100
[2017-11-09 09:10] LABS: LACTIC ACID 2.2 mmol/L (0.4-2.0)
[2017-11-09] MEDS: FUROSEMIDE 40 MG/4 ML VIAL. IVP ×2 (09:17→14:00)
[2017-11-09 09:21] LABS: ANION GAP 11 (6-14); BLOOD UREA NITROGEN 39 mg/dL (8-26); BUN/CREATININE RATIO 26 (6-20); CALCIUM 8.6 mg/dL (8.5-10.1); CARBON DIOXIDE 23 mmol/L (21-32); CHLORIDE 105 mmol/L (98-107); CREATININE 1.5 mg/dL (0.7-1.3); GFR 45.7; GLUCOSE 124 mg/dL (70-99); POTASSIUM 4.4 mmol/L (3.5-5.1); SODIUM 139 mmol/L (136-145)
[2017-11-09 09:22] LABS: INR 3.7 (0.8-1.1); PROTHROMBIN TIME PATIENT 35.9 SEC (11.7-14.0)
[2017-11-09] MEDS: PIPERACILLIN/TAZOBACTAM 3.375 GM in IV NORMAL SALINE 50ML 50 ML IV ×2 (09:24→22:25)
[2017-11-09] MEDS: VANCOMYCIN 2 GM in IV 1/2 NORMAL SALINE 500 ML IV (09:26)
[2017-11-09 09:27] LABS: AGAP ISTAT 13 mmol/L (6-14); BUN ISTAT 56 mg/dL (8-26); CHLORIDE ISTAT 108 mmol/L (98-110); CREATININE ISTAT 1.4 mg/dL (0.5-1.4); GLUCOSE ISTAT 145 mg/dL (70-99); HEMATOCRIT ISTAT 40 % (37-52); HEMOGLOBIN ISTAT 13.6 g/dL (14-18); ION CA ISTAT 1.14 mmol/L (1.13-1.32); POTASSIUM ISTAT 5.5 mmol/L (3.5-5.0); SODIUM ISTAT 139 mmol/L (135-145); TOT CO2 ISTAT 24 mmol/L (23-32)
[2017-11-09 09:28] LABS: ALBUMIN 3.3 g/dL (3.4-5.0); ALBUMIN/GLOBULIN RATIO 0.7 (1.0-1.7); ALK PHOS 104 U/L (46-116); ALT (SGPT) 37 U/L (16-63); AST (SGOT) 38 U/L (15-37); TOTAL BILIRUBIN 0.4 mg/dL (0.2-1.0)
[2017-11-09 09:33] LABS: NT-PRO BNP 876 pg/mL (0-124)
[2017-11-09] MEDS ORDERED: ACETAMINOPHEN 325 MG TABLET. PO (10:00)
[2017-11-09] MEDS ORDERED: ONDANSETRON PF 4 MG/2 ML VIAL. IV (10:30)
[2017-11-09] MEDS: VANCOMYCIN PER PHARMACY MC (10:39)
[2017-11-09] MEDS: IPRATRPIUM/ALBUTEROL 0.5/2.5MG 3 ML NEBU. NEB ×2 (11:25→19:35)
[2017-11-09] MEDS: CARVEDILOL 12.5 MG TABLET. PO ×2 (11:45→17:37)
[2017-11-09 12:13] LABS: % EOS 2 % (0-5); % LYMPHS 4 % (24-48); % MONOS 5 % (0-10); % MYELOS 1 % (0-0); % SEGS 88 % (35-66); PLT ESTIMATE ADEQUATE (ADEQUATE)
[2017-11-09 12:14] LABS: ANISOCYTOSIS SLIGHT
[2017-11-09] MEDS ORDERED: PIPERACILLIN/TAZOBACTAM 3.375 GM in IV NORMAL SALINE 50ML 50 ML IV (14:00)
[2017-11-09 14:22] LABS: C-REACTIVE PROTEIN 6.1 mg/L (0-3.3)
[2017-11-09 14:55] LABS: PROCALCITONIN < 0.10 ng/mL (0.00-0.10)
[2017-11-09 17:12] LABS: LACTIC ACID 1.9 mmol/L (0.4-2.0); TROPONINI 0.035 ng/mL (0.000-0.055)
[2017-11-09 20:17] LABS: TROPONINI 0.027 ng/mL (0.000-0.055)
[2017-11-09] MEDS: OMEGA-3 FATTY ACIDS/FISH OIL 1,000 MG CAPSULE. PO (21:18)
[2017-11-09] MEDS: ATORVASTATIN CALCIUM 10 MG TABLET. PO (21:18)
[2017-11-10 03:48] LABS: ADD MAN DIFF? NO
[2017-11-10 04:30] LABS: BASO # 0.1 x10^3/uL (0.0-0.2); BASO % 1 % (0-3); EOS # 0.4 x10^3/uL (0.0-0.7); EOS % 3 % (0-3); HEMATOCRIT 31.4 % (39.0-53.0); HEMOGLOBIN 10.1 g/dL (13.0-17.5); LYMPH % 6 % (24-48); MEAN CORPUSCULAR HEMOGLOBIN 27 pg (25-35); MEAN CORPUSCULAR HGB CONC 32 g/dL (31-37); MEAN CORPUSCULAR VOLUME 84 fL (79-100); MONO % 6 % (0-9); NEUT # 12.9 x10^3uL (1.8-7.7); NEUT % 84 % (31-73); PLATELET COUNT 223 x10^3/uL (140-400); RED BLOOD COUNT 3.75 x10^6/uL (4.30-5.70); RED CELL DISTRIBUTION WIDTH 17.9 % (11.5-14.5); WHITE BLOOD COUNT 15.3 x10^3/uL (4.0-11.0)
[2017-11-10 04:31] LABS: ALBUMIN 2.8 g/dL (3.4-5.0); ALBUMIN/GLOBULIN RATIO 0.6 (1.0-1.7); ALK PHOS 84 U/L (46-116); ALT (SGPT) 38 U/L (16-63); ANION GAP 11 (6-14); AST (SGOT) 37 U/L (15-37); BLOOD UREA NITROGEN 42 mg/dL (8-26); BUN/CREATININE RATIO 23 (6-20); CARBON DIOXIDE 22 mmol/L (21-32); CHLORIDE 107 mmol/L (98-107); CREATININE 1.8 mg/dL (0.7-1.3); DIG 0.4 ng/mL (0.9-2.0); GFR 37.1; GLUCOSE 129 mg/dL (70-99); MAGNESIUM 1.9 mg/dL (1.8-2.4); POTASSIUM 4.3 mmol/L (3.5-5.1); SODIUM 140 mmol/L (136-145); TOTAL BILIRUBIN 0.5 mg/dL (0.2-1.0); TOTAL PROTEIN 7.2 g/dL (6.4-8.2)
[2017-11-10 04:50] LABS: PROTHROMBIN TIME PATIENT 42.3 SEC (11.7-14.0)
[2017-11-10 05:12] LABS: INR 4.6 (0.8-1.1)
[2017-11-10] MEDS: PIPERACILLIN/TAZOBACTAM 3.375 GM in IV NORMAL SALINE 50ML 50 ML IV ×3 (05:21→22:15)
[2017-11-10] MEDS ORDERED: PANTOPRAZOLE 40 MG TABLET.DR. PO (07:30)
[2017-11-10] MEDS: IPRATRPIUM/ALBUTEROL 0.5/2.5MG 3 ML NEBU. NEB ×4 (08:30→19:21)
[2017-11-10] MEDS: PANTOPRAZOLE 40 MG TABLET.DR. PO (08:58)
[2017-11-10] MEDS: LISINOPRIL 20 MG TABLET PO (09:00)
[2017-11-10] MEDS ORDERED: VANCOMYCIN 1.75 GM in IV 1/2 NORMAL SALINE 500 ML IV (09:30)
[2017-11-10] MEDS: POTASSIUM CHLORIDE 10 MEQ TABLET.ER. PO (11:27)
[2017-11-10] MEDS: ASPIRIN CHEWABLE 81 MG TABLET. PO (11:27)
[2017-11-10] MEDS: FUROSEMIDE 40 MG/4 ML VIAL. IVP ×2 (11:27→14:00)
[2017-11-10] MEDS: CARVEDILOL 12.5 MG TABLET. PO ×2 (11:28→17:08)
[2017-11-10] MEDS: DOCUSATE SODIUM 100 MG CAPSULE. PO (11:36)
[2017-11-10] MEDS: ALLOPURINOL 100 MG TABLET. PO (11:36)
[2017-11-10] MEDS: ATORVASTATIN CALCIUM 10 MG TABLET. PO (20:52)
[2017-11-10] MEDS: OMEGA-3 FATTY ACIDS/FISH OIL 1,000 MG CAPSULE. PO (20:52)
[2017-11-10] MEDS: LACTOBACILLUS RHAMNOSUS GG 1 CAPSULE. PO (20:52)
[2017-11-10 22:13] LABS: LEGIONELLA AG UR Negative (Negative)
[2017-11-11 03:51] LABS: ADD MAN DIFF? NO
[2017-11-11 03:56] LABS: BASO # 0.1 x10^3/uL (0.0-0.2); BASO % 1 % (0-3); EOS # 0.5 x10^3/uL (0.0-0.7); EOS % 4 % (0-3); HEMATOCRIT 31.4 % (39.0-53.0); HEMOGLOBIN 9.9 g/dL (13.0-17.5); LYMPH # 1.2 x10^3/uL (1.0-4.8); LYMPH % 10 % (24-48); MEAN CORPUSCULAR HEMOGLOBIN 27 pg (25-35); MEAN CORPUSCULAR HGB CONC 32 g/dL (31-37); MEAN CORPUSCULAR VOLUME 84 fL (79-100); MONO # 1.1 x10^3/uL (0.0-1.1); MONO % 9 % (0-9); NEUT # 9.3 x10^3uL (1.8-7.7); NEUT % 76 % (31-73); PLATELET COUNT 238 x10^3/uL (140-400); RED BLOOD COUNT 3.73 x10^6/uL (4.30-5.70); RED CELL DISTRIBUTION WIDTH 18.2 % (11.5-14.5); WHITE BLOOD COUNT 12.4 x10^3/uL (4.0-11.0)
[2017-11-11 04:38] LABS: ALBUMIN 2.9 g/dL (3.4-5.0); ALBUMIN/GLOBULIN RATIO 0.7 (1.0-1.7); ALK PHOS 81 U/L (46-116); ALT (SGPT) 36 U/L (16-63); ANION GAP 7 (6-14); AST (SGOT) 28 U/L (15-37); BLOOD UREA NITROGEN 39 mg/dL (8-26); BUN/CREATININE RATIO 23 (6-20); CALCIUM 7.9 mg/dL (8.5-10.1); CARBON DIOXIDE 25 mmol/L (21-32); CHLORIDE 105 mmol/L (98-107); CREATININE 1.7 mg/dL (0.7-1.3); GFR 39.6; GLUCOSE 111 mg/dL (70-99); POTASSIUM 4.4 mmol/L (3.5-5.1); SODIUM 137 mmol/L (136-145); TOTAL BILIRUBIN 0.6 mg/dL (0.2-1.0); TOTAL PROTEIN 7.3 g/dL (6.4-8.2)
[2017-11-11 04:50] LABS: INR 2.9 (0.8-1.1); PROTHROMBIN TIME PATIENT 29.5 SEC (11.7-14.0)
[2017-11-11] MEDS: PIPERACILLIN/TAZOBACTAM 3.375 GM in IV NORMAL SALINE 50ML 50 ML IV (06:08)
[2017-11-11] MEDS: IPRATRPIUM/ALBUTEROL 0.5/2.5MG 3 ML NEBU. NEB ×4 (07:23→20:11)
[2017-11-11] MEDS: DOCUSATE SODIUM 100 MG CAPSULE. PO (08:28)
[2017-11-11] MEDS: ALLOPURINOL 100 MG TABLET. PO (08:28)
[2017-11-11] MEDS: PANTOPRAZOLE 40 MG TABLET.DR. PO (08:28)
[2017-11-11] MEDS: POTASSIUM CHLORIDE 10 MEQ TABLET.ER. PO (08:28)
[2017-11-11] MEDS: LACTOBACILLUS RHAMNOSUS GG 1 CAPSULE. PO ×2 (08:28→20:53)
[2017-11-11] MEDS: ASPIRIN CHEWABLE 81 MG TABLET. PO (08:28)
[2017-11-11] MEDS: CARVEDILOL 12.5 MG TABLET. PO ×2 (08:29→16:17)
[2017-11-11] MEDS: FUROSEMIDE 40 MG/4 ML VIAL. IVP ×3 (08:29→16:16)
[2017-11-11] MEDS: LISINOPRIL 20 MG TABLET PO (08:29)
[2017-11-11] MEDS: AMOXICILLIN/K CLAV 875/125MG TABLET. PO ×2 (08:35→20:54)
[2017-11-11 09:54] LABS: VANC TR 3.6 mcg/mL (10.0-20.0)
[2017-11-11] MEDS: predniSONE 20 MG TABLET PO (11:49)
[2017-11-11] MEDS: BUDESONIDE 0.5 MG/2 ML NEBU. NEB ×2 (12:00→20:11)
[2017-11-11 15:27] LABS: SPECIMEN SOURCE Urine (.); STREP PNEUMO ANTIGEN Negative (Negative)
[2017-11-11] MEDS: WARFARIN 3 MG TABLET. PO (16:17)
[2017-11-11] MEDS: OMEGA-3 FATTY ACIDS/FISH OIL 1,000 MG CAPSULE. PO (20:53)
[2017-11-11] MEDS: ATORVASTATIN CALCIUM 10 MG TABLET. PO (20:54)
[2017-11-12 06:16] LABS: ADD MAN DIFF? NO
[2017-11-12 06:30] LABS: BASO % 0 % (0-3); EOS % 0 % (0-3); HEMOGLOBIN 9.7 g/dL (13.0-17.5); LYMPH # 0.9 x10^3/uL (1.0-4.8); LYMPH % 8 % (24-48); MEAN CORPUSCULAR HEMOGLOBIN 27 pg (25-35); MEAN CORPUSCULAR HGB CONC 32 g/dL (31-37); MEAN CORPUSCULAR VOLUME 83 fL (79-100); MONO % 9 % (0-9); NEUT # 8.8 x10^3uL (1.8-7.7); NEUT % 82 % (31-73); PLATELET COUNT 241 x10^3/uL (140-400); RED BLOOD COUNT 3.61 x10^6/uL (4.30-5.70); RED CELL DISTRIBUTION WIDTH 18.7 % (11.5-14.5); WHITE BLOOD COUNT 10.7 x10^3/uL (4.0-11.0)
[2017-11-12] MEDS: PANTOPRAZOLE 40 MG TABLET.DR. PO (06:34)
[2017-11-12 06:53] LABS: ALBUMIN 2.8 g/dL (3.4-5.0); ALBUMIN/GLOBULIN RATIO 0.6 (1.0-1.7); ALK PHOS 81 U/L (46-116); ALT (SGPT) 38 U/L (16-63); ANION GAP 8 (6-14); AST (SGOT) 33 U/L (15-37); BLOOD UREA NITROGEN 43 mg/dL (8-26); BUN/CREATININE RATIO 22 (6-20); CALCIUM 8.1 mg/dL (8.5-10.1); CARBON DIOXIDE 24 mmol/L (21-32); CHLORIDE 104 mmol/L (98-107); GFR 32.8; GLUCOSE 131 mg/dL (70-99); POTASSIUM 4.5 mmol/L (3.5-5.1); SODIUM 136 mmol/L (136-145); TOTAL BILIRUBIN 0.4 mg/dL (0.2-1.0); TOTAL PROTEIN 7.3 g/dL (6.4-8.2)
[2017-11-12] MEDS: IPRATRPIUM/ALBUTEROL 0.5/2.5MG 3 ML NEBU. NEB ×4 (07:44→19:42)
[2017-11-12] MEDS: BUDESONIDE 0.5 MG/2 ML NEBU. NEB ×2 (07:44→19:42)
[2017-11-12 07:45] LABS: INR 1.9 (0.8-1.1); PROTHROMBIN TIME PATIENT 21.5 SEC (11.7-14.0)
[2017-11-12] MEDS: POTASSIUM CHLORIDE 10 MEQ TABLET.ER. PO (08:00)
[2017-11-12] MEDS: FUROSEMIDE 40 MG/4 ML VIAL. IVP ×2 (08:09→14:00)
[2017-11-12] MEDS: DOCUSATE SODIUM 100 MG CAPSULE. PO (08:58)
[2017-11-12] MEDS: predniSONE 20 MG TABLET PO (08:58)
[2017-11-12] MEDS: ALLOPURINOL 100 MG TABLET. PO (08:58)
[2017-11-12] MEDS: ASPIRIN CHEWABLE 81 MG TABLET. PO (08:58)
[2017-11-12] MEDS: AMOXICILLIN/K CLAV 500/125MG TABLET. PO ×2 (08:58→20:29)
[2017-11-12] MEDS: LACTOBACILLUS RHAMNOSUS GG 1 CAPSULE. PO ×2 (08:58→20:29)
[2017-11-12] MEDS: CARVEDILOL 12.5 MG TABLET. PO ×2 (09:01→16:05)
[2017-11-12] MEDS: LISINOPRIL 20 MG TABLET PO (09:02)
[2017-11-12] MEDS: WARFARIN 3 MG TABLET. PO (16:05)
[2017-11-12] MEDS: ATORVASTATIN CALCIUM 10 MG TABLET. PO (20:29)
[2017-11-12] MEDS: OMEGA-3 FATTY ACIDS/FISH OIL 1,000 MG CAPSULE. PO (20:29)
[2017-11-13 05:32] LABS: INR 1.8 (0.8-1.1); PROTHROMBIN TIME PATIENT 20.2 SEC (11.7-14.0)
[2017-11-13 05:33] LABS: ALBUMIN 2.7 g/dL (3.4-5.0); ALBUMIN/GLOBULIN RATIO 0.6 (1.0-1.7); ALK PHOS 85 U/L (46-116); ALT (SGPT) 52 U/L (16-63); ANION GAP 6 (6-14); AST (SGOT) 48 U/L (15-37); BLOOD UREA NITROGEN 35 mg/dL (8-26); BUN/CREATININE RATIO 25 (6-20); CALCIUM 8.7 mg/dL (8.5-10.1); CARBON DIOXIDE 27 mmol/L (21-32); CHLORIDE 105 mmol/L (98-107); CREATININE 1.4 mg/dL (0.7-1.3); GFR 49.5; GLUCOSE 133 mg/dL (70-99); POTASSIUM 4.6 mmol/L (3.5-5.1); SODIUM 138 mmol/L (136-145); TOTAL BILIRUBIN 0.3 mg/dL (0.2-1.0); TOTAL PROTEIN 7.2 g/dL (6.4-8.2)
[2017-11-13] MEDS: BUDESONIDE 0.5 MG/2 ML NEBU. NEB (07:48)
[2017-11-13] MEDS: IPRATRPIUM/ALBUTEROL 0.5/2.5MG 3 ML NEBU. NEB ×2 (07:48→11:10)
[2017-11-13] MEDS: predniSONE 20 MG TABLET PO (09:45)
[2017-11-13] MEDS: CARVEDILOL 12.5 MG TABLET. PO (09:46)
[2017-11-13] MEDS: LACTOBACILLUS RHAMNOSUS GG 1 CAPSULE. PO (09:46)
[2017-11-13] MEDS: PANTOPRAZOLE 40 MG TABLET.DR. PO (09:46)
[2017-11-13] MEDS: DOCUSATE SODIUM 100 MG CAPSULE. PO (09:46)
[2017-11-13] MEDS: AMOXICILLIN/K CLAV 875/125MG TABLET. PO (09:46)
[2017-11-13] MEDS: ALLOPURINOL 100 MG TABLET. PO (09:46)
[2017-11-13] MEDS: ASPIRIN CHEWABLE 81 MG TABLET. PO (09:46)
[2017-11-13] MEDS: LISINOPRIL 20 MG TABLET PO (09:47)
[2017-11-13] MEDS: POTASSIUM CHLORIDE 10 MEQ TABLET.ER. PO (09:47)
[2017-11-13] MEDS: FUROSEMIDE 40 MG/4 ML VIAL. IVP (09:48)
[2017-11-13] MEDS ORDERED: FUROSEMIDE 40 MG/4 ML VIAL. IVP (16:00)
[2017-11-13] MEDS ORDERED: WARFARIN 4 MG TABLET. PO (16:00)
[2017-11-14] MEDS ORDERED: predniSONE 10 MG TABLET PO (09:00)
[2017-11-17] MEDS ORDERED: predniSONE 20 MG TABLET PO (09:00)
[2017-11-19] MEDS ORDERED: predniSONE 10 MG TABLET PO (09:00)
== END 2017-11-13 15:50 | DRG 291 ==
LOC: ER 08:03 → 2 NORTH 09:30
PROC: 5A09457 Assistance with Respiratory Ventilation, 24-96 Consecutive Hours, Continuous Positive Airway Pressure (ICD-10-PCS; principal; 2017-11-09)
PROC: 5A09357 Assistance with Respiratory Ventilation, Less than 24 Consecutive Hours, Continuous Positive Airway Pressure (ICD-10-PCS; 2017-11-09)
DX: I13.0 Hypertensive heart and chronic kidney disease with heart failure and stage 1 through stage 4 chronic kidney disease, or unspecified chronic kidney disease (principal); J96.21 Acute and chronic respiratory failure with hypoxia; N17.9 Acute kidney failure, unspecified; D68.9 Coagulation defect, unspecified; E11.22 Type 2 diabetes mellitus with diabetic chronic kidney disease; I27.20 Pulmonary hypertension, unspecified; I50.43 Acute on chronic combined systolic (congestive) and diastolic (congestive) heart failure; J44.1 Chronic obstructive pulmonary disease with (acute) exacerbation; I48.2 Chronic atrial fibrillation; Z99.81 Dependence on supplemental oxygen; N18.2 Chronic kidney disease, stage 2 (mild); E78.00 Pure hypercholesterolemia, unspecified; Z95.1 Presence of aortocoronary bypass graft; I25.10 Atherosclerotic heart disease of native coronary artery without angina pectoris; J10.1 Influenza due to other identified influenza virus with other respiratory manifestations; F17.200 Nicotine dependence, unspecified, uncomplicated; Z83.3 Family history of diabetes mellitus; Z87.01 Personal history of pneumonia (recurrent); D64.9 Anemia, unspecified; E66.9 Obesity, unspecified; Z79.01 Long term (current) use of anticoagulants; E78.5 Hyperlipidemia, unspecified; G47.33 Obstructive sleep apnea (adult) (pediatric); D72.829 Elevated white blood cell count, unspecified; J98.01 Acute bronchospasm; Z91.11 Patient's noncompliance with dietary regimen; Z91.19 Patient's noncompliance with other medical treatment and regimen; Z95.810 Presence of automatic (implantable) cardiac defibrillator
CPT/HCPCS: 36415; 36600; 71045; 71046; 80047; 80053; 80162; 80202; 82805; 83605; 83735; 83880; 84145; 84484; 85007; 85025; 85610; 86140; 87040; 87205; 87449; 93005; 94640; 94660; 94760; 96365; 96366; 96368; 96375; 97162-GP; 97165-GO; 97535-GO; 99291; 99291-25; J1940; J2543; J3370; J7512; J7620; J7626

== ENCOUNTER → 2018-01-01 | Outpatient (CLI) | payer OTHER | END | disposition home or self-care (01) | LOC: US 08:45 | DX: I13.0 Hypertensive heart and chronic kidney disease with heart failure and stage 1 through stage 4 chronic kidney disease, or unspecified chronic kidney disease (principal); E11.22 Type 2 diabetes mellitus with diabetic chronic kidney disease; I50.42 Chronic combined systolic (congestive) and diastolic (congestive) heart failure; N18.2 Chronic kidney disease, stage 2 (mild); J44.1 Chronic obstructive pulmonary disease with (acute) exacerbation; E78.5 Hyperlipidemia, unspecified | CPT/HCPCS: 76770 ==